=== PATIENT | male | born 1965 | race Hispanic/Latino ===

== ENCOUNTER 2020-06-09 11:30 | Inpatient (IN) | payer OTHER ==
[~2020-06-09] VITALS: Ht 167.6 cm; Wt 89.7 kg
[2020-06-09] MEDS ORDERED: ONDANSETRON HCL 4 MG/2 ML VIAL ONE ×2 (11:46→17:13)
[2020-06-09] MEDS ORDERED: FENTANYL CITRATE PF 50 MCG/1 ML 2ML VIAL ONE ×2 (11:47→17:13)
[2020-06-09 12:01] LABS: BASOPHILS % (AUTO) 0.7 % (0.0-5.0); EOSINOPHILS % (AUTO) 5.9 % (0.0-8.0); HEMATOCRIT 47.1 % (42-54); LYMPHOCYTES % (AUTO) 33.1 % (21.0-51.0); MEAN CORPUSCULAR HEMOGLOBIN 30.5 pg (27.0-33.0); MEAN CORPUSCULAR HGB CONC 35.2 g/dL (32.0-36.0); MEAN CORPUSCULAR VOLUME 86.4 fL (79-99); MONOCYTES % (AUTO) 8.9 % (3.0-13.0); NEUTROPHILS % (AUTO) 51.1 % (40.0-77.0); PLATELET COUNT (AUTO) 191 K/uL (130-400); RED BLOOD CELL COUNT(AUTO) 5.45 MIL/uL (4.50-6.20); RED CELL DISTRIBUTION WIDTH 12.5 % (11.0-15.5)
[2020-06-09] MEDS ORDERED: IOHEXOL-350 75 ML VIAL IV ONE (12:12)
[2020-06-09 12:15] LABS: ALBUMIN 3.9 g/dL (3.5-5.0); BILIRUBIN,TOTAL 0.6 mg/dL (0.2-1.0); CREATININE 1.7 mg/dL (0.5-1.5); POTASSIUM 3.8 mmol/L (3.5-5.1); TOTAL PROTEIN, SERUM 8.3 g/dL (6.0-8.3)
[2020-06-09 12:20] LABS: INR 0.88 (0.85-1.15); PARTIAL THROMBOPLASTIN TIME 24.1 SEC (26.3-35.5); PROTHROMBIN TIME 9.5 SEC (9.6-11.6)
[2020-06-09 16:33] LABS: APPEARANCE,URINE Clear (CLEAR); BILIRUBIN,URINE Negative (NEGATIVE); COLOR,URINE Yellow (YELLOW); GLUCOSE, URINE (UA) Negative (NEGATIVE); KETONES,URINE Negative (NEGATIVE); LEUKOCYTE ESTERASE ,URINE Negative (NEGATIVE); NITRATE,URINE Negative (NEGATIVE); OCCULT BLOOD,URINE Negative (NEGATIVE); PROTEIN,URINE POS 1+ mg/dL (NEGATIVE)
[2020-06-09 16:46] LABS: BACTERIA,URINE Few /HPF (None Seen); RBC,URINE None Seen /HPF (0-1); SQUAMOUS EPITHELIAL CELL,UR None Seen /HPF (0-2)
[2020-06-09] MEDS ORDERED: LACTATED RINGERS 1000ML 1,000 ML IV SCH (19:04)
[2020-06-09] MEDS ORDERED: HYDRALAZINE HCL 20 MG/ML VIAL IV PRN (19:15)
[2020-06-09 20:25] LABS: HEMATOCRIT 40.3 % (42-54)
[2020-06-09] MEDS ORDERED: LACTATED RINGERS 1000ML 1,000 ML IV ONE (21:19)
[2020-06-09 22:25] VITALS: BP 128/87
[2020-06-10 00:21] VITALS: BP 137/87
[2020-06-10 03:50] VITALS: BP 119/85
[2020-06-10 05:00] LABS: HEMATOCRIT 38.8 % (42-54)
[2020-06-10 08:10] VITALS: BP 136/86
[2020-06-10] MEDS: ACETAMINOPHEN-CODEINE 300/30MG TAB PO PRN ×2 (09:35→22:18)
[2020-06-10 11:00] VITALS: BP 115/77
--- NOTE | 2020-06-10 11:05 | NUR ---
DR. LEIJA AT BEDSIDE STATES WILL WANT TO MONITOR PATIENT FOR A COUPLE OF DAYS DUE TO SPLENIC INJURY. OKAY TO KEEP HIM IN REGULAR.
[2020-06-10] MEDS ORDERED: MORPHINE SULFATE 2 MG/ML 1ML SYG IVP PRN (11:15)
[2020-06-10 12:04] LABS: HEMATOCRIT 35.7 % (42-54)
[2020-06-10 16:00] VITALS: BP 115/68
--- NOTE | 2020-06-10 17:00 | NUR ---
SPOKE W PATIENT VIA PHONE FOR INITIAL ASSESSMENT STATES LIVES W DAUGHTERS, ADDRESS VERIFIED, ZELDA WILL HELP ON DISCHARGE- PATIENT IS ACTIVE, EMPLOYED, DRIVES, NO PRATIBHA DOSHI CM TO FOLLOW Addendum: 06/10/20 at 1957 by JUANJO GREEN RN CM Amended: Links added.
[2020-06-10 20:00] VITALS: BP 94/58
[2020-06-10 20:15] LABS: HEMATOCRIT 30.7 % (42-54)
--- NOTE | 2020-06-10 22:30 | NUR ---
Rounds Patient awake and alert x4. Voices all needs. Medicated as per MARS with Tylenol #3 one tab po for complaints of pain. Tolerated well. Up ad ib. Vitals stable. Afebrile. Tolerating po fluids well. Voiding with no difficulty. Call light within reach. Will continue to be observed. Addendum: 06/11/20 at 0041 by ALEAH PORTER RN RN Amended: Links added.
[2020-06-11] VITALS: BP 99/71
[2020-06-11 04:00] VITALS: BP 112/74
[2020-06-11 04:26] LABS: HEMATOCRIT 31.1 % (42-54)
[2020-06-11 08:00] VITALS: BP 110/71
[2020-06-11 12:09] VITALS: BP 122/83
[2020-06-11 12:25] LABS: HEMATOCRIT 30.7 % (42-54)
--- NOTE | 2020-06-11 14:00 | NUR ---
DR. LEIJA AWARE OF H/H STATES H/H IS HAS MAINTAINED, AND OKAY TO D/C HOME.
[2020-06-11 16:00] VITALS: BP 123/79
--- NOTE | 2020-06-11 17:30 | NUR ---
PT D/C HOME USING TEACH BACK TECNIQUE RE; NEW MEDS, HOME MEDS, S/S TO WATCH FOR AND WHEN TO CALL MD OR 911. Follow up with Dr. Selby in 1-2 weeks call to set up an appointment at phone . Address: [address] [place] [address], [address], [place], [place]. If you feel dizzy, or light headedness sit down to prevent falls. If you start having severe abdominal pain, pressure, or abdominal distention call 911 or if bleeding noted in your stool call your primary doctor OR TO SIMPLY COME BACK TO OUR EMERGENCY ROOM. make sure to make appointment with the surgeon DR. Selby. STATES WILL FOLLOW UP WITH PRIMARY WELL. AAOX3, DENIES ANY DISTRESS, IV OUT INTACT, NO BLEEDING, DENIES ANY QUESTIONS.
== END 2020-06-11 19:20 | disposition home or self-care (01) | DRG 816 ==
LOC: EDBD 11:30 → EDH 11:30 → EDHIP 19:04 → OBSVTOIN 19:04 → 3BH 22:34
PROVIDERS: ADMIT Surgery; ATTEND Surgery
DX: S36.039A Unspecified laceration of spleen, initial encounter (principal); I10 Essential (primary) hypertension; Y99.0 Civilian activity done for income or pay; Y93.89 Activity, other specified; Y92.89 Other specified places as the place of occurrence of the external cause
CPT/HCPCS: 36415; 71260; 74177; 80053; 81001; 82550; 85014; 85018; 85025; 85610; 85730; 86850; 86900; 86901; G0378; J2405; J3010; J7120; Q9967